=== PATIENT | female | born 1945 | race Caucasian/White ===

== ENCOUNTER 2017-04-13 07:19 | Day surgery (SDC) | payer OTHER ==
[~2017-04-13] VITALS: Ht 162.6 cm; Wt 73.0 kg
[~2017-04-13 07:19] MED LIST: ASPI325 PO; ASPI81EC PO; ATOR20 PO; Azor 5-20 MG T1 EACH; CLOP75 PO; IBUP800 PO; Lisinopril2.5 MG PO; METO25ER PO; NEBI5 PO; OXYACE5T PO
[2017-04-13] MEDS ORDERED: Excedrin Extra1 EACH (07:48)
== END 2017-04-13 09:42 | disposition home or self-care (01) ==
LOC: ORSCSDS 07:19
DX: R19.5 Other fecal abnormalities (principal); D12.5 Benign neoplasm of sigmoid colon; D12.3 Benign neoplasm of transverse colon; D12.4 Benign neoplasm of descending colon; K57.30 Diverticulosis of large intestine without perforation or abscess without bleeding; K64.8 Other hemorrhoids; Z80.0 Family history of malignant neoplasm of digestive organs; K64.4 Residual hemorrhoidal skin tags; I25.10 Atherosclerotic heart disease of native coronary artery without angina pectoris; I10 Essential (primary) hypertension; E78.5 Hyperlipidemia, unspecified; Z79.899 Other long term (current) drug therapy; Z87.891 Personal history of nicotine dependence
CPT/HCPCS: 88305; J0330; J1980; J2405

== ENCOUNTER → 2020-03-04 | Outpatient (CLI) | payer OTHER, SELFPAY ==
[~2020-03-04] MED LIST changes: +Excedrin Extra1 EACH
== END ==
LOC: LAB 19:09 → LAB SHORT 19:09
DX: R31.9 Hematuria, unspecified (principal)
CPT/HCPCS: 87077; 87086; 87186

== ENCOUNTER → 2020-08-07 | Outpatient (CLI) | payer OTHER, SELFPAY | LOC: LAB SHORT 11:00 → PLD 11:00 | DX: R31.0 Gross hematuria (principal) | CPT/HCPCS: 87086 ==